=== PATIENT | female | born 2000 | race Caucasian/White ===

== ENCOUNTER → 2020-12-05 08:35 | Outpatient (CLI) | payer OTHER, SELFPAY ==
[2020-12-05 12:35] LABS: Bacteria Urine None Seen; WBC Urine None Seen (0-5/HPF)
[2020-12-05 12:37] LABS: Appearance Urine UA CLOUDY; Bilirubin Urine UA NEGATIVE (NEGATIVE); Color Urine UA YELLOW; Glucose Urine UA NEGATIVE (Negative); Ketones Urine UA NEGATIVE (NEGATIVE); Leukocyte Esterase Urine UA NEGATIVE (NEGATIVE); Nitrite Urine UA NEGATIVE (Negative); Occult Blood Urine UA 1+ (Negative); Protein Urine UA NEGATIVE (Negative); Specific Gravity Urine UA >=1.030 (1.000-1.035); Urobilinogen Urine UA 0.2 E.U./dL (0.2)
[2020-12-05 12:42] LABS: Amorphous Sediment Urine 3+; Calcium Oxalate Crystals Urine Occasional; RBC Urine 0-1/HPF (0-5/HPF)
== END ==
PROVIDERS: PCP Registered Nurse; Visit Provider Registered Nurse
DX: M54.5 Low back pain (principal); R10.2 Pelvic and perineal pain
CPT/HCPCS: 81001; 87086

== ENCOUNTER → 2021-01-25 12:41 | Outpatient (CLI) | payer OTHER, SELFPAY ==
[2021-01-25 17:52] LABS: HIV 1 & 2 Ab/Ag 4th Gen Combo NEGATIVE (NEGATIVE); Hep C Virus Ab w/Reflex Quant NEGATIVE s/c (NEGATIVE)
[2021-01-26 04:36] LABS: HSV 2 IGG AB < 0.91 index (0.00-0.90); HSV1IGG < 0.91 index (0.00-0.90)
[2021-01-26 05:37] LABS: RPR Screen Non Reactive (Non Reactive)
[2021-01-26 21:28] LABS: HSV I/II IgM <0.91 Ratio (0.00-0.90)
== END ==
PROVIDERS: PCP Registered Nurse; Referring Provider Registered Nurse; Visit Provider Registered Nurse
DX: Z11.3 Encounter for screening for infections with a predominantly sexual mode of transmission (principal)
CPT/HCPCS: 36415; 86592; 86694; 86695; 86696; 86803; 87389

== ENCOUNTER → 2021-03-16 11:13 | Outpatient (CLI) | payer OTHER, SELFPAY ==
[2021-03-16 13:18] LABS: HCG Quantitative /Beta subunit 6397.2 mIU/mL
== END ==
PROVIDERS: PCP Registered Nurse; Referring Provider Registered Nurse; Visit Provider Registered Nurse
DX: N94.6 Dysmenorrhea, unspecified (principal)
CPT/HCPCS: 36415; 84702

== ENCOUNTER → 2021-03-23 09:41 | Outpatient (CLI) | payer OTHER, SELFPAY ==
--- NOTE | 2021-03-23 09:42 | DI.US.S_ITS ---
PROCEDURE: US OB <= 14 WEEKS FETUS INDICATIONS: Dating OB OUTSIDE/PRIOR DATING DATA: Last menstrual period (LMP): Not available. LMP-based estimated date of delivery (EMIL): Not available. First dating scan (date and location): 03/23/21. Estimated date of delivery (EMIL) from first dating scan: 11/18/21. TECHNIQUE: Real-time scanning was performed of the fetus and maternal pelvic organs, with image documentation. Endovaginal scanning was also performed to better visualize the fetus and maternal ovaries. COMPARISON: None. FINDINGS: Embryo: Single intrauterine gestation, with crown-rump length 0.2 cm correlated with a gestational age estimate of 5 weeks 5 days, +/-5 days. cardiac activity is not yet observed as expected at this very early gestational age. Measurement variability in dating: +/- 4 weeks by LMP, +/- 7 days by mean sac diameter (use before 6 weeks gestation if crown-rump length not able to be measured), +/- 5 days by crown-rump length (up to 8 weeks 6 days gestation), +/- 7 days by crown-rump length (up to 13 weeks 6 days gestation). Maternal organs: Ovaries appear normal considering gestational status. . IMPRESSION: 5 week 5 day gestational age by crown-rump length, cardiac activity is not yet observed or expected to be observed. Follow-up OB ultrasound in 7-10 days may be warranted to confirm the viability. Follow-up anatomic survey at 20 weeks gestation is recommended. Dictated by: Andrew Johnson M.D. on 03/23/2021 at 13:56 Approved by: Andrwe Johnson M.D. on 03/23/2021 at 13:58
== END ==
PROVIDERS: PCP Registered Nurse; Referring Provider Obstetrics & Gynecology; Visit Provider Obstetrics & Gynecology
DX: Z36.87 Encounter for antenatal screening for uncertain dates (principal); Z3A.01 Less than 8 weeks gestation of pregnancy
CPT/HCPCS: 76801